=== PATIENT | male | born 1945 | race Caucasian/White ===

== ENCOUNTER → 2016-08-02 | Outpatient (CLI) | payer MEDICARE, OTHER ==
--- NOTE | 2016-08-02 15:22 | Diagnostic Imaging Report ---
EXAMINATION: PET-CT TECHNIQUE: Serum glucose level at the time of the study is: 126 mg/dL. 12 mCi of FDG was administered intravenously followed by obtaining PET images with corresponding noncontrast CT scan images. The CT scan was performed for anatomic correlation and attenuation correction and was not performed according to the diagnostic protocol of the areas covered. The scan was performed from the head to mid thighs. INDICATION: Multiple pulmonary nodules and cecal mass. FINDINGS: There is symmetric FDG uptake seen in the brain. There is FDG uptake along the posterior aspect of the vocal cords likely physiologic. In the chest, there are multiple hypermetabolic lesions with maximum SUV of 4.5 seen in the right upper lobe lesion. This mass measures 3.2 x 1.9 cm compared to 4 x 3 cm based on study dated 07/25/2016 performed at an outside institution and loaded on the PACS system of our hospital. There are some other nodules also that demonstrate slightly decrease in size. No hypermetabolic lymphadenopathy is seen in the mediastinum, lindsey or axilla. IN THE ABDOMEN AND PELVIS: There is urinary tract excretion of the tracer seen. There is a focus of intense FDG uptake with SUV of 6 seen within the mid segment of the sigmoid colon. Etiology is uncertain. Specifically, the cecum demonstrates no hypermetabolic mass. No liver or osseous suspicious hypermetabolic mass is seen. IMPRESSION: 1. There are numerous pulmonary nodules with hypermetabolism seen. Many of the nodules appear to have minimally decreased in size compared to CT of 07/25/2016. The etiology is favored to be inflammatory or infectious including rheumatoid nodules or atypical or fungal infections. Correlate clinically and with followup CT chest to ensure resolution in a few weeks is recommended. 2. Focus of significant FDG uptake is seen in the mid sigmoid colon. No definitive correlating mass is seen with multiple diverticula noted. Although this could be inflammatory, correlation with sigmoidoscopy is recommended to rule out underlying early mucosal neoplasm. Dictated by: Dictated on workstation # [id number]
== END ==
LOC: RAD 09:19
PROVIDERS: ATTEND Family Medicine
DX: R91.8 Other nonspecific abnormal finding of lung field (principal); K63.9 Disease of intestine, unspecified

== ENCOUNTER → 2016-09-20 | Outpatient (CLI) | payer MEDICARE, OTHER ==
[~2016-09-20] MED LIST: CATHETER FLUSH 10 ML SYR IV PRN; IOHEXOL 350 MG/ML 100 ML (OMNIPAQUE 350) VIAL IV ONE; NS 100 ML (IVPB) BAG IV ONE
--- NOTE | 2016-09-20 12:52 | Diagnostic Imaging Report ---
PROCEDURE: CT chest with contrast only. TECHNIQUE: Multiple contiguous axial images were obtained through the chest after administration of intravenous contrast. INDICATION: Followup pulmonary nodules. COMPARISON: Comparison with an outside study loaded on our system from 07/25/2016 is reviewed. FINDINGS: There is significant improvement compared to 07/25/2016 with near complete resolution of the previously seen nodules and dominant masslike consolidation in the right upper lobe with remaining scarring seen at that location. There is minimal atelectasis seen. The remaining nodules measuring 5 mm in the right middle lobe, image 33 and in the left lower lobe measuring 6 mm, image 35 are seen. Another nodule in the lingula measuring 6 mm is also noted. Overall, this is significant improvement and is suggestive of resolving inflammatory or infectious process. There is no pleural or pericardial effusion. The heart size is normal. The thoracic aorta is normal in caliber. No mediastinal, hilar or axillary significantly enlarged lymph node is noted. The osseous structures appear grossly unremarkable. In the subcutaneous tissues of the posterior chest wall on the left side, a fat density lesion measuring 4.2 x 1.4 x 2.8 cm is seen with no heterogeneity or aggressive features suggestive of a lipoma. There is also a 2.5 cm hyperenhancing lesion within the right hepatic lobe. This is not seen on previous relatively recent PET from July 2016 and with no hypermetabolism suggestive of a benign etiology. IMPRESSION: 1. Significant improvement compared to 07/25/2016 with only remaining subcentimeter scattered nodules in the lungs suggestive of resolving inflammatory or infectious process. Another followup in six months is suggested. 2. A 2.5 cm right hepatic lobe hyperenhancing lesion. No hypermetabolism was seen in this region on recent PET exam in favor of benign etiology. This could be better characterized with liver mass protocol MRI. Dictated by: Dictated on workstation # [id number]
== END ==
LOC: RAD 09:11
PROVIDERS: ATTEND Family Medicine
DX: R91.8 Other nonspecific abnormal finding of lung field (principal); K76.9 Liver disease, unspecified
CPT/HCPCS: 71260

== ENCOUNTER → 2016-12-27 | Outpatient (CLI) | payer MEDICARE, OTHER ==
[~2016-12-27] MED LIST changes: -IOHEXOL 350 MG/ML 100 ML (OMNIPAQUE 350) VIAL IV ONE; -NS 100 ML (IVPB) BAG IV ONE
== END ==
LOC: CARD 11:47
PROVIDERS: ATTEND Specialist
DX: A43.8 Other forms of nocardiosis (principal); M06.9 Rheumatoid arthritis, unspecified
CPT/HCPCS: 78300